=== PATIENT | male | born 1995 | race Caucasian/White ===

== ENCOUNTER 2018-09-06 19:34 | Outpatient (CLI) | payer OTHER | END 2018-09-06 19:35 | disposition EMS.NT | LOC: EMS 19:34 | PROVIDERS: ATTEND Surgery | DX: R04.0 Epistaxis (principal); Y04.2XXA Assault by strike against or bumped into by another person, initial encounter ==

== ENCOUNTER 2018-09-06 20:27 | Emergency (ER) | payer OTHER ==
[2018-09-06] MEDS ORDERED: OXYMETAZOLINE NASAL SPRAY NAS STA (20:40)
[2018-09-06] MEDS ORDERED: BACITRACIN OINT TOP STA (21:44)
[2018-09-06] MEDS ORDERED: oxyCODONE/ACET 5/325 Prepack 4 PO STA (22:28)
[2018-09-06] MEDS ORDERED: IBUPROFEN 600 MG TABLET PO STA (22:28)
[2018-09-06 22:39] VITALS: BP 136/80
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
== END 2018-09-06 22:40 | disposition home or self-care (01) ==
LOC: ED 20:27
DX: S02.2XXA Fracture of nasal bones, initial encounter for closed fracture (principal); R04.0 Epistaxis; S01.81XA Laceration without foreign body of other part of head, initial encounter; Y04.2XXA Assault by strike against or bumped into by another person, initial encounter; Y93.9 Activity, unspecified; Y92.89 Other specified places as the place of occurrence of the external cause
CPT/HCPCS: 12011; 30901; 99283; 99284; A9270